=== PATIENT | male | born 1985 | race Caucasian/White ===

== ENCOUNTER 2019-01-28 20:14 | Emergency (ER) | payer SELFPAY ==
[~2019-01-28] VITALS: Ht 170.2 cm; Wt 88.5 kg
[2019-01-28 20:58] VITALS: BP 122/98
--- NOTE | 2019-01-28 21:02 | NUR ---
PT WHEEL CHAIR ASSISTED TO LOBBY.
--- NOTE | 2019-01-28 21:20 | NUR ---
PT TAKEN TO XRAY FROM [facility]
--- NOTE | 2019-01-28 23:44 | NUR ---
PT TAKEN TO ER BED 1 VIA WHEELCHAIR
--- NOTE | 2019-01-28 23:53 | NUR ---
PT TO ED WITH C/O L LEG AND FOOT PAIN. PT POOR HISTORIAN, UNABLE TO RECALL EVENT. SWELLING NOTED TO L FOOT. EDEMA PRESENT. PEDAL PULSES PRESENT BUT DIFFICULT TO ASSES DUE TO EDEMA. ABLE TO MOVE FOOT. PER PT "I TOOK SOME MORPHINE PILLS EARLIER FOR THE PAIN" PT IS UNABLE TO KEEP EYES OPEN OR ANSWER QUESTIONS APPROPRIATLEY. ER MD MADE AWARE OF PT STATUS, NO ORDERS RECIEVED.
--- NOTE | 2019-01-28 23:58 | NUR ---
PATIENT LEFT WITHOUT BEING SEEN BY DR. HERMAN. NO FURTHER CARE PROVIDED FOR PATIENT.
[2019-01-29] VITALS: BP 122/98
== END 2019-01-28 23:58 | disposition left against medical advice (07) ==
LOC: MED 20:14
DX: M25.572 Pain in left ankle and joints of left foot (principal); Z53.21 Procedure and treatment not carried out due to patient leaving prior to being seen by health care provider; W17.89XA Other fall from one level to another, initial encounter; Y93.89 Activity, other specified; Y92.89 Other specified places as the place of occurrence of the external cause; Y99.0 Civilian activity done for income or pay
CPT/HCPCS: 73590; 73610; 73630

== ENCOUNTER 2020-07-03 05:29 | Emergency (ER) | payer OTHER ==
[~2020-07-03] VITALS: Ht 167.6 cm; Wt 94.3 kg
[2020-07-03 05:57] VITALS: BP 146/98
--- NOTE | 2020-07-03 06:04 | NUR ---
PT AMBULATED TO RESTROOM W/ STEADY GAIT.
--- NOTE | 2020-07-03 06:10 | NUR ---
C/O PENILE PAIN & DISCHARGE X 5 DAYS , + UNPROTECTED SEX . VSS . DENIES ANY DYSURIA OR BLOOD IN URINE. 10/28 PAIN. PT SAYS BLOOD COMES OUT OF HIS PENIS WHEN HE HAS AN ERECTION. A&O X4. STEADY GAIT. PMH: DENIES NKA.
--- NOTE | 2020-07-03 06:15 | NUR ---
URINE SAMPLE COLLECTED AND WALKED TO LAB.
[2020-07-03 06:31] VITALS: BP 146/98
--- NOTE | 2020-07-03 06:31 | NUR ---
Patient discharged with v/s stable. Written and verbal after care instructions given and explained. Patient alert, oriented and verbalized understanding of instructions. Ambulatory with steady gait. All questions addressed prior to discharge. ID band removed. Patient advised to follow up with PMD. Rx of PHENAZOPYRIDINE given. Patient educated on indication of medication including possible reaction and side effects. Opportunity to ask questions provided and answered.
[2020-07-03 11:01] LABS: BARBITURATE, URINE NEGATIVE ng/ml (NEG <=200); BENZODIAZEPINE, URINE NEGATIVE ng/mL (NEG <=200); CANNABINOID, URINE POSITIVE ng/mL (NEG <=50); COCAINE, URINE NEGATIVE ng/mL (NEG <=300)
[2020-07-03 11:02] LABS: OPIATE, URINE POSITIVE ng/mL (NEG <=2000); PHENCYCLIDINE SCREEN,URINE NEGATIVE ng/mL (NEG <=25)
[2020-07-05 06:07] LABS: CHLAMYDIA TRACHOMATIS AMP DNA Negative (Negative)
== END 2020-07-03 06:31 | disposition home or self-care (01) ==
LOC: MED 05:29
DX: R30.0 Dysuria (principal); F19.10 Other psychoactive substance abuse, uncomplicated
CPT/HCPCS: 36415; 80305; 81002; 87491; 99283

== ENCOUNTER 2020-07-24 15:00 | Emergency (ER) | payer OTHER ==
[~2020-07-24] VITALS: Ht 170.2 cm; Wt 97.5 kg
[2020-07-24 15:08] VITALS: BP 159/102
--- NOTE | 2020-07-24 15:18 | NUR ---
C/O MID LOWER BACK PAIN RADIATING TO MORAIMA HIPS & LEFT LEG S/P FALL X 2 DAYS. DENIES TRAUMA OR DYSURIA.PT AOX 4, AFIBRILE , AMBULATORY WITH STEADY GAIT , PINK PALPEBRAL CONJUNCTIVA , ANICTERIC SCLERA , SCE FLAT SOFT ABDOMEN , NO ROM LIMITATION ON LOWER EXT. MED HX: DENIES
--- NOTE | 2020-07-24 15:23 | NUR ---
Patient being evaluated by DR RUTLEDGE at bedside.
--- NOTE | 2020-07-24 15:38 | NUR ---
PT TO XRAY VIA WHEELCHAIR.
[2020-07-24] MEDS: diazePAM 5 MG TAB PO ONE (15:50)
[2020-07-24] MEDS: KETOROLAC 30 MG/ML VIAL IM ONE (15:51)
[2020-07-24 16:13] VITALS: BP 159/90
--- NOTE | 2020-07-24 16:14 | NUR ---
Patient discharged with v/s stable. Written and verbal after care instructions given and explained low back strain and sciatica . Patient alert, oriented and verbalized understanding of instructions. Ambulatory with steady gait. All questions addressed prior to discharge. ID band removed. Patient advised to follow up with PMD. Rx of valium , lidoderm transdermal patch and naprosyn given. Patient educated on indication of medication including possible reaction and side effects. Opportunity to ask questions provided and answered.
== END 2020-07-24 16:14 | disposition home or self-care (01) ==
LOC: MED 15:00
DX: M54.40 Lumbago with sciatica, unspecified side (principal)
CPT/HCPCS: 72100; 96372; 99283; J1885